=== PATIENT | female | born 1950 | race Caucasian/White ===

== ENCOUNTER 2019-11-26 12:45 | Outpatient (REF) | payer OTHER, SELFPAY ==
--- NOTE | 2019-11-26 | MM_ITS ---
EXAMINATION: MM SCREENING DIGITAL BREAST TOMOSYNTHESIS, BILATERAL CLINICAL INFORMATION: Screening. Asymptomatic. Family history breast cancer in sister, age 40s. The lifetime risk of breast cancer based on the Tyrer-Cuzick Model is 11%. COMPARISON: Mammography: 08/04/2018, 07/24/2017, 06/29/2016 TECHNIQUE: Digital breast tomosynthesis is performed in both the craniocaudal and mediolateral oblique views along with computer-aided detection (CAD). Synthesized 2D images are generated from the tomosynthesis. FINDINGS: The breasts are heterogeneously dense, which may obscure small masses (ACR BI-RADS breast composition Category c). Parenchymal pattern is similar to prior studies. There is no developing density or interval mass or architectural abnormality. Again, there is biopsy clip marker posterior 1:00 left breast and posterior 12:00 right breast. There are scattered bilateral calcifications again seen, more numerous on left. No significant changes. IMPRESSION: No significant changes from prior studies. ASSESSMENT: BI-RADS 2: Benign RECOMMENDATION: Routine annual mammography screening. This patient's information was entered into a reminder system with a target due date for their next mammogram.
== END 2019-11-26 12:46 | disposition home or self-care (01) ==
LOC: HO.MAMMO 12:45
PROVIDERS: PCP Family Medicine; Visit Provider Family Medicine
DX: Z12.31 Encounter for screening mammogram for malignant neoplasm of breast (principal)
CPT/HCPCS: 77067

== ENCOUNTER 2019-12-22 11:44 | Outpatient (REF) | payer OTHER, SELFPAY ==
[2019-12-22 15:54] LABS: Free T4 (Free Thyroxine) 1.25 ng/dL (0.71-1.85); Thyroid Stimulating Hormone 0.18 mIU/mL (0.32-4.0)
== END 2019-12-22 11:45 | disposition home or self-care (01) ==
LOC: HO.10HDL 11:44
PROVIDERS: Visit Provider Family Medicine
DX: E03.9 Hypothyroidism, unspecified (principal)
CPT/HCPCS: 84439; 84443

== ENCOUNTER 2020-07-29 10:04 | Outpatient (REF) | payer OTHER, SELFPAY ==
[2020-07-29 11:55] LABS: Free T4 (Free Thyroxine) 1.31 ng/dL (0.71-1.85); Thyroid Stimulating Hormone 0.05 uIU/mL (0.32-4.0)
== END 2020-07-29 10:05 | disposition home or self-care (01) ==
LOC: HO.LAB 10:04
PROVIDERS: PCP Family Medicine; Visit Provider Family Medicine
DX: E03.9 Hypothyroidism, unspecified (principal)
CPT/HCPCS: 36415; 84439; 84443

== ENCOUNTER 2020-11-09 10:48 | Outpatient (REF) | payer OTHER, SELFPAY ==
[2020-11-09 14:43] LABS: Free T4 (Free Thyroxine) 1.28 ng/dL (0.71-1.85); Thyroid Stimulating Hormone 0.09 uIU/mL (0.32-4.0)
== END 2020-11-09 10:49 | disposition home or self-care (01) ==
LOC: HO.10HDL 10:48
PROVIDERS: Internal Medicine; Visit Provider Family Medicine
DX: E03.9 Hypothyroidism, unspecified (principal)
CPT/HCPCS: 36415; 84439; 84443

== ENCOUNTER → 2020-11-25 08:55 | Outpatient (BNVA) | payer OTHER, SELFPAY | PROVIDERS: PCP Family Medicine; Visit Provider Surgery ==

== ENCOUNTER 2020-12-16 08:57 | Outpatient (REF) | payer OTHER, SELFPAY ==
[2020-12-16 09:26] VITALS: BP 161/81; PULSE 70; RESP 16; TEMP 37.2; O2SAT 98; BMI 20.3
[2020-12-16 10:18] VITALS: BP 128/81; PULSE 71; RESP 16; O2SAT 98
--- NOTE | 2020-12-16 10:20 | P.OP_ITS ---
Operative Note Operative Note Date of Service: 12/16/20 Narrative: Preoperative diagnosis: Lesion of posterior left shoulder Postoperative diagnosis: Same Procedure: Excision of lesion posterior left shoulder Surgeon: Devon Ortiz MD [employer]: No physician Anesthesia: Local lidocaine 1% with epinephrine 15 mL Indications for procedure: 70-year-old female patient presenting with an enlarging lesion of the right shoulder which began to become ulcerated and bleed during the summertime. The lesion has increased in size over the past year. Operative findings: 3 by 2.5 cm raised red lesion suggestive of a squamous or basal cell carcinoma. Specimen: Skin lesion posterior left shoulder Estimated blood loss: 10 mL Complications: None Procedure details: Patient was placed in a right lateral decubitus position. The site of surgery was confirmed by the patient and informed consent assured. The skin was then prepped with Betadine and draped in a sterile fashion. Local anesthesia consisting 1% lidocaine with epinephrine was then infiltrated circumferentially. A longitudinal incision was then made in elliptical fashion around the lesion being sure to include a 3 mm margin circumferentially. Incision was carried out through subcutaneous tissue down to muscle fascia. The lesion was then excised off the muscle fascia. Lesion was marked with a long suture on the lateral margin short suture on the superior margin and loop suture on the medial margin. Specimen was passed off the table and sent to pathology for further examination. Pressure was held to maintain hemostasis. Suture LigaSure was also used using a 3-0 Polysorb suture. Dermis was then reapproximated using interrupted 3-0 Polysorb sutures. Skin was closed using interrupted 4-0 nylon sutures. Sterile dressings consisting of 2 x 2 gauze and Tegaderm were then applied. The patient tolerated the procedure well. Sponge, instrument, and needle counts reported as correct. Patient was transferred to PACU in stable condition.
== END 2020-12-16 08:58 | disposition home or self-care (01) ==
LOC: HO.MS 08:57
PROVIDERS: PCP Family Medicine; Visit Provider Surgery
PROC: (CPT 11606; principal; 2020-12-16 09:10)
DX: C44.619 Basal cell carcinoma of skin of left upper limb, including shoulder (principal)
CPT/HCPCS: 11606; 12032; 88305

== ENCOUNTER → 2020-12-23 10:07 | Outpatient (BNVA) | payer OTHER, SELFPAY | PROVIDERS: PCP Family Medicine; Visit Provider Surgery ==

== ENCOUNTER 2021-01-25 12:40 | Outpatient (REF) | payer OTHER, SELFPAY ==
--- NOTE | ~2021-01-25 | MM_ITS ---
EXAMINATION: MM SCREENING DIGITAL BREAST TOMOSYNTHESIS, BILATERAL CLINICAL INFORMATION: Screening. Asymptomatic. Family history breast cancer, sister age 40s. The lifetime risk of breast cancer based on the Tyrer-Cuzick Model is 8%. COMPARISON: Mammography: 11/26/2019, 08/04/2018, 07/24/2017 TECHNIQUE: Digital breast tomosynthesis is performed in both the craniocaudal and mediolateral oblique views along with computer-aided detection (CAD). Synthesized 2D images are generated from the tomosynthesis. Additional bilateral exaggerated CC views are provided. FINDINGS: The breasts are heterogeneously dense, which may obscure small masses (ACR BI-RADS breast composition Category c). Parenchymal pattern is similar to prior studies and there is no interval mass or architectural abnormality or developing density. There is biopsy clip marker posterior 12:00 right breast and central posterior 12:30 left breast. Scattered bilateral vascular and punctate calcifications and some ductal secretory calcifications on the left are again noted. There are new fine calcifications versus pseudo calcifications in the upper outer left breast. These are less conspicuous on the tomography which may suggest digital processing artifact. Patient will be recalled for additional imaging. MM/MM tomosynthesis screening BI IMPRESSION: 1. Left: Increased fine calcifications versus pseudocalcification artifact upper outer quadrant. 2. Right: No mammographic evidence of malignancy. ASSESSMENT: BI-RADS 0: Incomplete - Need Additional Imaging Evaluation RECOMMENDATION: 1. Additional views of the left breast (magnification CC, magnification ML). 2. Radiology department staff will contact the patient for additional imaging. This patient's information was entered into a reminder system with a target due date for their next mammogram.
== END 2021-01-25 12:41 | disposition home or self-care (01) ==
LOC: HO.MAMMO 12:40
PROVIDERS: Visit Provider Family Medicine
DX: Z12.31 Encounter for screening mammogram for malignant neoplasm of breast (principal)
CPT/HCPCS: 77063; 77067

== ENCOUNTER 2021-01-30 10:24 | Outpatient (REF) | payer OTHER, SELFPAY ==
--- NOTE | ~2021-01-30 | MM_ITS ---
EXAMINATION: MM DIAGNOSTIC DIGITAL MAMMOGRAPHY, LEFT CLINICAL INFORMATION: Recall from screening for new fine calcifications versus digital calcifications upper outer left breast. COMPARISON: Digital breast tomosynthesis: 01/25/2021 and prior exams dating back to full field digital mammography 06/06/2015. TECHNIQUE: Digital mammography is performed in the following views: Magnification CC, magnification ML FINDINGS: The breasts are heterogeneously dense, which may obscure small masses (ACR BI-RADS breast composition Category c). There are scattered coarse and fine punctate round calcifications in the upper outer left breast. There is mild increased calcifications since 2016. There is no focal suspicious grouping or ductal distribution. Many of the fine punctate densities noted on recent 2-D synthesized images are not visualized consistent with digital processing artifact as suspected. Results are discussed with the patient at time of visit. MM/MM added views LT IMPRESSION: Mild increased calcifications since 2016. No focal suspicious grouping or ductal distribution or pleomorphic types. ASSESSMENT: BI-RADS 3: Probably Benign RECOMMENDATION: Diagnostic left mammography in 6 months. This patient's information was entered into a reminder system with a target due date for their next mammogram.
== END 2021-01-30 10:25 | disposition home or self-care (01) ==
LOC: HO.MAMMO 10:24
PROVIDERS: Visit Provider Family Medicine
DX: R92.1 Mammographic calcification found on diagnostic imaging of breast (principal)
CPT/HCPCS: 77065

== ENCOUNTER 2021-05-24 11:04 | Outpatient (REF) | payer OTHER, SELFPAY ==
[2021-05-24 13:59] LABS: Free T4 (Free Thyroxine) 1.27 ng/dL (0.71-1.85)
== END 2021-05-24 11:05 | disposition home or self-care (01) ==
LOC: HO.10HDL 11:04
PROVIDERS: Visit Provider Family Medicine
DX: E03.9 Hypothyroidism, unspecified (principal)
CPT/HCPCS: 36415; 84439

== ENCOUNTER 2021-07-31 12:15 | Outpatient (REF) | payer OTHER, SELFPAY ==
--- NOTE | ~2021-07-31 | MM_ITS ---
EXAMINATION: MM DIAGNOSTIC DIGITAL BREAST TOMOSYNTHESIS, LEFT CLINICAL INFORMATION: Month follow-up calcifications The lifetime risk of breast cancer based on the Tyrer-Cuzick Model is 6.8%. COMPARISON: Mammography: January 30, 2021 and studies dating back to April 22, 2013 TECHNIQUE: Digital breast tomosynthesis is performed in both the craniocaudal and mediolateral oblique views along with computer-aided detection (CAD). Synthesized 2D images are generated from the tomosynthesis. Spot magnification views in craniocaudal and 90 degree mediolateral views also performed. FINDINGS: The breasts are heterogeneously dense, which may obscure small masses (ACR BI-RADS breast composition Category c). There are no new significant masses, abnormal calcifications, or other abnormalities. The left breast calcifications are essentially stable compared to previous study. Results are provided to the patient at time of visit by the technologist. MM/MM tomosynthesis diagnostic LT IMPRESSION: There are no significant changes from prior study. Recommend 6 month follow-up bilateral mammography with magnification views of the left breast. ASSESSMENT: BI-RADS 3: Probably Benign RECOMMENDATION: Diagnostic mammography in 6 months. This patient's information was entered into a reminder system with a target due date for their next mammogram.
== END 2021-07-31 12:16 | disposition home or self-care (01) ==
LOC: HO.MAMMO 12:15
PROVIDERS: PCP Family Medicine; Visit Provider Family Medicine
DX: R92.1 Mammographic calcification found on diagnostic imaging of breast (principal)
CPT/HCPCS: 77061; 77065

== ENCOUNTER 2021-11-08 11:10 | Outpatient (REF) | payer OTHER, SELFPAY | END 2021-11-08 11:11 | disposition home or self-care (01) | LOC: HO.10HDL 11:10 | PROVIDERS: Visit Provider Family Medicine | DX: E03.9 Hypothyroidism, unspecified (principal) | CPT/HCPCS: 36415; 84439 ==

== ENCOUNTER 2022-01-31 10:50 | Outpatient (REF) | payer OTHER, SELFPAY ==
--- NOTE | ~2022-01-31 | MM_ITS ---
EXAMINATION: MM DIAGNOSTIC DIGITAL BREAST TOMOSYNTHESIS, BILATERAL CLINICAL INFORMATION: Due for yearly. Also follow-up probable benign calcifications upper outer left breast. The lifetime risk of breast cancer based on the Tyrer-Cuzick Model is 7%. COMPARISON: Mammography: 07/31/2021, 01/30/2021, 01/25/2021 (BI-RADS 0), 11/26/2019, 08/04/2018, 07/24/2017. TECHNIQUE: Digital breast tomosynthesis is performed in both the craniocaudal and mediolateral oblique views along with computer-aided detection (CAD). Synthesized 2D images are generated from the tomosynthesis. Additional magnification left CC x2 and left magnification ML views are obtained. FINDINGS: The breasts are heterogeneously dense, which may obscure small masses (ACR BI-RADS breast composition Category c). There is fibronodular parenchymal pattern with variable stable asymmetries similar to prior studies. There is no significant mass or architectural abnormality or developing density. Again, there are scattered bilateral punctate and ductal secretory and vascular calcifications. There are biopsy clip markers in the bilateral posterior mid upper breasts. The axilla and skin contours are unremarkable. Left breast calcifications for follow-up are similar to prior diagnostic exam. There are no increasing calcifications or interval pleomorphic types. Left breast calcifications will be reassessed again at next bilateral annual mammography, due in 12 months. Results are provided to the patient at time of visit by the technologist. MM/MM tomosynthesis diagnostic BI IMPRESSION: -No mammographic evidence of malignancy. -Left breast calcifications for follow-up are similar to prior diagnostic exam. ASSESSMENT: BI-RADS 3: Probably Benign RECOMMENDATION: Diagnostic mammography at time of next annual exam, due in 12 months. This patient's information was entered into a reminder system with a target due date for their next mammogram.
== END 2022-01-31 10:51 | disposition home or self-care (01) ==
LOC: HO.MAMMO 10:50
PROVIDERS: PCP Family Medicine; Visit Provider Family Medicine
DX: R92.1 Mammographic calcification found on diagnostic imaging of breast (principal)
CPT/HCPCS: 77062; 77066

== ENCOUNTER 2022-05-17 11:18 | Outpatient (REF) | payer OTHER, SELFPAY ==
[2022-05-17 14:11] LABS: Anion Gap 13 (12-20); Blood Urea Nitrogen 9 mg/dL (9-16); Carbon Dioxide 25 mmol/L (22-29); Chloride 106 mmol/L (96-108); Estimated Glomerular Filt Rate > 60; Potassium 4.2 mmol/L (3.3-5.1); Sodium 140 mmol/L (135-145)
[2022-05-17 14:27] LABS: Free T4 (Free Thyroxine) 1.22 ng/dL (0.71-1.85)
== END 2022-05-17 11:19 | disposition home or self-care (01) ==
LOC: HO.10HDL 11:18
PROVIDERS: Visit Provider Family Medicine
DX: E03.9 Hypothyroidism, unspecified (principal); I10 Essential (primary) hypertension
CPT/HCPCS: 36415; 80051; 82565; 84439; 84520

== ENCOUNTER → 2022-08-02 09:54 | Outpatient (REF) | payer OTHER, SELFPAY ==
--- NOTE | 2022-08-02 09:56 | CA_ITS ---
Transthoracic Echocardiogram Patient (Last, First, Middle): Dalia Villegas M Gender: Female Date of : 1950 Age: 72 Procedure Date: 08/02/2022 Procedure Type: Transthoracic Echocardiogram Location: OP Height: 167.64 cm Weight: 59.88 kg BSA: 1.68 m2 Heart Rate: 58 bpm BP: 148 / 90 mmHg Tax Investigator: CHIDI Referring MD: Christian Roberts MD Corporate Associate Attorney: Wyatt Lyn MD Symptoms: Z86.79 PER HXOTHER DISEASES CIRCULATORY SYSTEM Study Quality: Adequate ECG Rhythm: Sinus Conclusions: - 1. Normal LV systolic function with normal diastolic filling pattern 2. Mild aortic and mitral regurgitation 3. Normal RV systolic pressure 4. No gross pericardial effusion Findings Left Ventricle Normal left ventricular size, thickness, and systolic function. The visually estimated ejection fraction is between 60-65%. Spectral Doppler is indicative of a normal filling pattern. Peak GLS is -18.5%, within normal limits. Right Ventricle Normal right ventricular cavity size and systolic function. Atria Both atria are normal in size. There is no evidence of interatrial shunt. Aortic Valve Normal aortic valve structure and function. There is no aortic valve stenosis. There is mild aortic valve regurgitation. Mitral Valve There is mild anterior and posterior mitral leaflet thickening. There is mild mitral valve regurgitation. There is no mitral valve stenosis. Pulmonic Valve The pulmonic valve is likely normal. There is trace pulmonic valve regurgitation. Tricuspid Valve Normal tricuspid valve structure. There is trace tricuspid valve regurgitation. The right ventricular systolic pressure is normal. The right ventricular systolic pressure is 24 mmHg. Normal right atrial pressure. There is no evidence of pulmonary hypertension. Great Vessels All visible segments of the aorta are normal in size. The pulmonary artery was not well visualized. Venous The inferior vena cava is normal in size and collapses greater than 50% with inspiration. Pericardium/Pleural There is no evidence of pericardial effusion. Prior Study Comparison No significant change compared to prior study dated: 09/25/2018. Measurements 2D Linear Measurements IVSd: 0.95 0.6-0.9/0.6-1.0 cm LVIDd: 3.90 3.9-5.3/4.2-5.9 cm LVIDd Index: 2.32 2.4-3.2/2.2-3.1 cm/m2 LVIDs: 2.39 2.0-3.6 cm LVPWd: 0.92 0.7-1.1 cm LA Diam: 2.50 2.7-3.8/3.0-4.0 cm LAIDs Index: 1.49 1.5-2.3 cm/m2 LV Mass: 137.78 67-162/88-224 g LV Mass Index: 82.01 43-95/49-115 g/m2 LVOT Diam: 2.10 3.0+(-)1.3 cm 2D Systolic Function EF 4C: 63.30 >55% EF 2C: 65.20 >55% EF BiP: 64.70 >55% Mitral Valve MV Pk E: 0.63 MV PK A: 0.56 MV Decel Time: 255.00 E/A: 1.10 E'Lateral: 9.68 E'Medial: 6.96 E/E' Med: 9.00 E/E' Lat: 6.50 PHT: 75.00 MVA PHT: 2.93 Decel Huntington: 2.45 Aortic Valve AoV Pk Solomon: 1.22 AoV Mn Solomon: 0.83 AoV VTI: 0.32 AoV Pk Grad: 6.00 Aov Mn Grad: 3.00 LIONEL Cont.VTI: 1.84 AI Pk Solomon: 4.37 AI Huntington: 1.51 LVOT LVOT Pk Solomon: 0.74 LVOT Mn Solomon: 0.42 LVOT VTI: 0.17 LVOT Pk Grad: 2.00 LVOT Mn Grad: 1.00 LVOT Diam: 2.10 LVOT Area: 3.46 Diastolic Function MV Pk E: 0.63 MV Pk A: 0.56 E/A: 1.10 E'Medial: 6.96 E/E' Med: 9.00 E' Laterial: 9.68 E/E' Lat: 6.50 Right Ventricle TAPSE (mm): 2.74 TVS' Solomon: 10.70 Tricuspid Valve TR Pk Solomon: 2.28 TR Pk Grad: 21.00 RA Press: 3.00 RVSP: 24.00 Great Vessels Aorta Sinus of Valsalva: 3.23 2.0-3.[address] Ridge: 2.69 1.7-3.4 cm Ao Asc: 3.10 2.1-3.4 cm Updated in Other Vendor System with Status of Final Wyatt Lyn MD electronically signed on 08/02/2022 3:38:34 PM with status of Final
== END ==
LOC: HO.CARD 09:54
PROVIDERS: PCP Family Medicine; Visit Provider Family Medicine
DX: Z86.79 Personal history of other diseases of the circulatory system (principal)
CPT/HCPCS: 93306; 93356

== ENCOUNTER 2022-11-06 11:20 | Outpatient (REF) | payer OTHER, SELFPAY ==
[2022-11-06 14:18] LABS: Free T4 (Free Thyroxine) 1.22 ng/dL (0.71-1.85)
== END 2022-11-06 11:21 | disposition home or self-care (01) ==
LOC: HO.10HDL 11:20
PROVIDERS: Visit Provider Family Medicine
DX: E03.9 Hypothyroidism, unspecified (principal)
CPT/HCPCS: 36415; 84439

== ENCOUNTER 2023-02-11 10:50 | Outpatient (REF) | payer OTHER, SELFPAY ==
--- NOTE | ~2023-02-11 | MM_ITS ---
EXAMINATION: MM DIAGNOSTIC DIGITAL BREAST TOMOSYNTHESIS, BILATERAL CLINICAL INFORMATION: Patient presents for recommended short interval follow-up of left breast calcifications. COMPARISON: Mammography: This study is compared to prior mammograms dating back to 2018. TECHNIQUE: Digital breast tomosynthesis is performed in both the craniocaudal and mediolateral oblique views along with computer-aided detection (CAD). Synthesized 2D images are generated from the tomosynthesis. Magnification imaging of the left breast was performed. FINDINGS: There are scattered areas of fibroglandular density (ACR BI-RADS breast composition Category b). There are no significant masses, abnormal calcifications, or other abnormalities. There is a tissue marker in the left breast from prior benign percutaneous biopsy. There are bilateral benign calcifications. There is a tissue marker in the right breast from prior benign percutaneous biopsy. MM/MM tomosynthesis diagnostic BI IMPRESSION: There are no significant changes from prior study. ASSESSMENT: BI-RADS BI-RADS 2 - Benign Findings RECOMMENDATION: 1 year F/U Results were provided to the patient at time of visit by the technologist. This patient's information was entered into a reminder system with a target due date for their next mammogram.
== END 2023-02-11 10:51 | disposition home or self-care (01) ==
LOC: HO.MAMMO 10:50
PROVIDERS: PCP Family Medicine; Visit Provider Family Medicine
DX: R92.1 Mammographic calcification found on diagnostic imaging of breast (principal)
CPT/HCPCS: 77062; 77066

== ENCOUNTER → 2023-02-11 11:00 | Outpatient (BNV) | payer OTHER, SELFPAY | PROVIDERS: PCP Family Medicine; Visit Provider Radiology Diagnostic Radiology | DX: R92.8 Other abnormal and inconclusive findings on diagnostic imaging of breast (principal) | CPT/HCPCS: 77062; 77066 ==

== ENCOUNTER 2023-05-16 10:50 | Outpatient (REF) | payer OTHER, SELFPAY ==
[2023-05-16 14:18] LABS: Free T4 (Free Thyroxine) 1.19 ng/dL (0.71-1.85); Thyroid Stimulating Hormone 0.02 uIU/mL (0.32-4.0)
== END 2023-05-16 10:51 | disposition home or self-care (01) ==
LOC: HO.10HDL 10:50
PROVIDERS: Visit Provider Family Medicine
DX: E03.9 Hypothyroidism, unspecified (principal)
CPT/HCPCS: 36415; 84439; 84443

== ENCOUNTER 2023-11-20 10:30 | Outpatient (REF) | payer OTHER, SELFPAY ==
[2023-11-20 12:28] LABS: Anion Gap 13 (12-20); Blood Urea Nitrogen 12 mg/dL (9-16); Carbon Dioxide 29 mmol/L (22-29); Chloride 105 mmol/L (96-108); Estimated Glomerular Filt Rate > 60; Potassium 4.8 mmol/L (3.3-5.1); Sodium 142 mmol/L (135-145)
[2023-11-20 12:36] LABS: Free T4 (Free Thyroxine) 1.28 ng/dL (0.71-1.85); Thyroid Stimulating Hormone 0.04 uIU/mL (0.32-4.0)
== END 2023-11-20 10:31 | disposition home or self-care (01) ==
LOC: HO.LAB 10:30
PROVIDERS: PCP Family Medicine; Visit Provider Family Medicine
DX: E03.9 Hypothyroidism, unspecified (principal); I10 Essential (primary) hypertension
CPT/HCPCS: 36415; 80051; 82565; 84439; 84443; 84520

== ENCOUNTER 2024-05-14 10:13 | Outpatient (REF) | payer OTHER, SELFPAY ==
[2024-05-14 11:37] LABS: MANUAL DIFF FLAG NO
[2024-05-14 11:45] LABS: Basophils Absolute Auto 0.1 X10*3/uL (0.0-0.2); Basophils Percent Auto 0.9 % (0-2); Eosinophils Absolute Auto 0.2 X10*3/uL (0.0-0.4); Eosinophils Percent Auto 3.1 % (0-4); Hematocrit 39.3 % (37.0-47.0); Hemoglobin 12.9 g/dl (12.0-16.0); Imm Gran Abs Auto 0.01 X10*3/uL (0.00-0.03); Imm Gran Pct Auto 0.1 % (0.0-0.4); Mean Corpuscular HGB Conc 32.8 g/dl (31.0-35.0); Mean Corpuscular Volume 91.4 fL (80.0-98.0); Mean Platelet Volume 10.6 fL (9.4-12.3); Monocytes Absolute Auto 0.6 X10*3/uL (0.1-1.2); Neutrophils Absolute Auto 3.2 x10*3/uL (2.0-8.3); Neutrophils Percent Auto 44.9 % (45-73); Platelet Count 265 X10*3/uL (160-400); Red Cell Distribution Width 12.6 % (11.0-16.0)
[2024-05-14 12:14] LABS: Alanine Aminotransferase 27 U/L (0-31); Albumin Level 4.3 g/dL (3.5-5.0); Alkaline Phosphatase 111 U/L (39-117); Anion Gap 10 (12-20); Aspartate Amino Transferase 25 U/L (5-31); Bilirubin Total 1.1 mg/dL (0.0-1.0); Blood Urea Nitrogen 12 mg/dL (9-16); Calcium 9.5 mg/dL (8.4-10.2); Carbon Dioxide 28 mmol/L (22-29); Chloride 105 mmol/L (96-108); Estimated Glomerular Filt Rate > 60; Free T4 (Free Thyroxine) 1.35 ng/dL (0.71-1.85); Glucose Random 89 mg/dL (60-115); Potassium 4.2 mmol/L (3.3-5.1); Sodium 139 mmol/L (135-145); Thyroid Stimulating Hormone 0.02 uIU/mL (0.32-4.0); Total Protein 7.7 g/dL (6.5-8.0)
== END 2024-05-14 10:14 | disposition home or self-care (01) ==
LOC: HO.10HDL 10:13
PROVIDERS: Visit Provider Family Medicine
DX: I10 Essential (primary) hypertension (principal); E03.9 Hypothyroidism, unspecified; R63.4 Abnormal weight loss
CPT/HCPCS: 36415; 80053; 84439; 84443; 85025

== ENCOUNTER 2024-05-19 15:37 | Outpatient (REF) | payer OTHER, SELFPAY | END 2024-05-19 15:38 | disposition home or self-care (01) | LOC: HO.MAMMO 15:37 | PROVIDERS: PCP Family Medicine; Visit Provider Family Medicine | DX: Z12.31 Encounter for screening mammogram for malignant neoplasm of breast (principal) | CPT/HCPCS: 77063; 77067 ==

== ENCOUNTER → 2024-05-19 15:45 | Outpatient (BNV) | payer OTHER, SELFPAY | PROVIDERS: PCP Family Medicine; Visit Provider Internal Medicine | DX: Z12.31 Encounter for screening mammogram for malignant neoplasm of breast (principal) | CPT/HCPCS: 77063; 77067 ==

== ENCOUNTER 2024-11-24 10:20 | Outpatient (REF) | payer OTHER, SELFPAY ==
--- OUTSIDE RECORDS SUMMARY | 2024-11-24 11:30 | XMS_ITS | Patient Health Record ---
[facility] Address [address] [place] [id number] Care Team Providers Care News Camera Person Name Role Phone Armando (RETIRED) Christian YUAN Primary Care Provider Unavailable Alton Connors Jr Unavailable [phone] Reason For Referral No Information Medications Medication SIG (Take, Route, Frequency, Duration) Notes Start Date End Date Status Colyte with Flavor Packs 240 GM As directed Orally Over the specified time. for 1 day(s) Active Levothyroxine Sodium 75 MCG 1 tablet on an empty stomach in the morning Orally Once a day Active Claritin 10 MG 1 tablet Orally prn Active Social History Tobacco Use: Social History Observation Description Date Details (start date - stop date) Never Smoker NA - NA Tobacco Use/Smoking Question Answer Notes Patient is a nonsmoker Alcohol Screen Question Answer Notes Did you have a drink contain ing alcohol in the past year? Yes How often did you have a dri nk containing alcohol in the past year? 2 to 4 times a month (2 points) How many drinks did you have on a typical day when you were drinking in the past year? 1 or 2 drinks (0 point) How often did you have 6 or more drinks on one occasion in the past year? Never (0 point) Points 2 Interpretation Negative Problems Problem Type SNOMED Code ICD Code Onset Dates Problem Status W/U Status Risk Notes Problem 496076620 Colon cancer screening (Z12.11) Active confirmed Problem [id number] Encounter for other preprocedural examination (Z01.818) Active confirmed Plan Of Treatment Future Test Test Name Order Date COLONOSCOPY 10/25/2017 Insurance Providers Payer Name Payer Address Payer Phone Subscriber Number Group Number Insured Name Patient Relationship to Insured Coverage Start Date Coverage End Date [facility] IN[facility] [address] [place] [address] [id number] KENNETH PULIDO Self - patient is the insured Medical (General) History Medical History History ICD Code Hypothyroidism environmental allergies Surgical History Surgery Date(Month/Year) basal cell removal-leg 2016
[2024-11-24 14:21] LABS: Free T4 (Free Thyroxine) 1.38 ng/dL (0.71-1.85)
== END 2024-11-24 10:21 | disposition home or self-care (01) ==
LOC: HO.10HDL 10:20
PROVIDERS: Visit Provider Physician Assistant Medical
DX: E03.9 Hypothyroidism, unspecified (principal); I10 Essential (primary) hypertension
CPT/HCPCS: 36415; 84439; 84443